=== PATIENT | male | born 1950 | race Caucasian/White ===

== ENCOUNTER 2017-10-03 10:01 | Observation (INO) ==
[2017-10-03 11:26] LABS: Baso # (Auto) 0.1 th/mm3 (0.0-0.2); Baso % (Auto) 0.8 % (0.0-2.0); Eos # (Auto) 0.3 th/mm3 (0.0-0.4); Eos % (Auto) 3.6 % (0.0-4.0); Hemoglobin 15.6 gm/dL (13.0-17.0); Lymph # (Auto) 1.7 th/mm3 (1.0-4.8); Lymph % (Auto) 21.8 % (9.0-44.0); Mean Corpuscular HGB Conc 33.8 % (32.0-36.0); Mean Corpuscular Hemoglobin 33.2 pg (27.0-34.0); Mean Corpuscular Volume 98.3 fL (80.0-100.0); Mean Platelet Volume 8.4 fL (7.0-11.0); Mono # (Auto) 0.5 th/mm3 (0.0-0.9); Mono % (Auto) 6.7 % (0.0-8.0); Neut # (Auto) 5.4 th/mm3 (1.8-7.7); Neut % (Auto) 67.1 % (16.0-70.0); Platelet Count 227 th/mm3 (150-450); Red Blood Count 4.68 mil/mm3 (4.50-5.90); Red Cell Distribution Width 12.4 % (11.6-17.2)
[2017-10-03 11:32] LABS: Chloride 108 meq/L (98-107); Potassium 3.8 meq/L (3.5-5.1); Sodium 140 meq/L (136-145)
[2017-10-03 11:34] LABS: Calcium 8.4 mg/dL (8.5-10.1)
[2017-10-03 11:35] LABS: Albumin 3.7 g/dL (3.4-5.0); Anion Gap 7 meq/L (5-15); Blood Urea Nitrogen 11 mg/dL (7-18); Carbon Dioxide 24.7 meq/L (21.0-32.0); Glucose,Random 97 mg/dL (74-106)
[2017-10-03 11:38] LABS: Alanine Aminotransferase 34 U/L (12-78); Aspartate Aminotransferase 23 U/L (15-37); Glomerular Filtration Rate 82 mL/min (>89)
--- NOTE | 2017-10-03 11:39 | ED ---
HPI General Chief Complaint: Anxiety Stated Complaint: Anxious/cold sweats x1week Time Seen by Provider: 10/03/17 10:59 Source: patient and family Mode of arrival: ambulatory Limitations: no limitations History of Present Illness MD complaint: anxiety Onset (ago): week(s) (2) Symptoms: dyspnea, palpitations, sense of impending doom and other (Diaphoresis , crying, feeling antsy and cannot be still) Severity: moderate Quality: intermittent and worsening (He states that his symptoms initially only occurred at night while he was sleeping. Over the last couple of days, his symptoms have become almost constant.) History of similar episodes: No Provoking factors: none known Relieving factors: other (Walking around outside) Exacerbating factors: nothing Associated symptoms: shortness of breath, diaphoresis and other (Crying, psychomotor agitation) Related Data Home Medications Medication Instructions Recorded Confirmed celecoxib [Celebrex] 200 mg PO BID 10/03/17 10/03/17 Allergies Allergy/AdvReac Type Severity Reaction Status Date / Time No Known Allergies Allergy Verified 10/03/17 10:09 Review of Systems Except as stated in HPI: all other systems reviewed are negative [facility] Medical History Medical History Diverticulitis large intestine (Acute) Patient denies medical problems (Acute) Surgical History Surgical History H/O spinal fusion (Acute) History of partial colectomy (Acute) Knee joint replacement status (Acute) Social History Social History Substance History: Active Abuse Second Hand Smoke Exposure: No Smoking Status: Former smoker How Often Do You Have a Drink Containing Alcohol: 2 to 3 times a week Recent Travel in [facility] within the Last 8 Weeks: No Recent Out of Country Travel within the Last 8 Weeks: No Substance Abuse Detail Marijuana: Substance Use Status: Active Route Used Substance Abuse: Inhalation Immunization History Tetanus Immunization: Unsure Hx Influenza Vaccine This Season: No Exam Const General: cooperative, healthy appearing, comfortable, no acute distress, well developed and well groomed HENKS Head: normal to inspection, normocephalic and atraumatic Eyes General: appearance normal, both eyes and all related structures Conjunctivae: conjunctivae normal Sclera: sclerae normal Pupils: PERRL EOM: EOM intact bilaterally Neck Neck: normal visual inspection and full ROM Chest Chest: normal inspection of the chest Resp Effort & Inspection: normal respiratory effort and able to speak in complete sentences Auscultation: clear to auscultation bilaterally Cardio Rate: regular rate Rhythm: regular rhythm Heart Sounds: S1 normal and S2 normal GI Inspection: normal to inspection Palpation: soft Back/Spine/Pelvis Cervical Spine: cervical ROM normal Thoracic/Lumbar Spine: thoraco-lumbar ROM normal Skin General: no rashes or lesions noted and turgor normal Lesions: other Neuro General: alert, awake, oriented x3, moves all extremities and CN's II-XI intact bilaterally Speech: speech normal Motor: muscle tone normal throughout Coordination: [id number] test normal Extrem General: normal to inspection and full ROM Psych Appearance: grossly normal Mental Status: mental status grossly normal Speech and Movement: speech and movement normal Mood: congruent mood Affect: labile affect Attitude: cooperative Thought Process: normal Thought Content: normal Judgment: judgment good Course Consultations Consultation #1: 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 [facility] for further evaluation Initial Documented Vital Signs Temperature 97.9 F 10/03/17 10:03 Pulse Rate 83 10/03/17 10:03 Respiratory Rate 18 10/03/17 10:03 Blood Pressure 154/89 H 10/03/17 10:03 Pulse Oximetry 95 10/03/17 10:03 Last Documented Vital Signs Temperature 97.9 F 10/03/17 10:03 Pulse Rate 82 10/03/17 14:32 Respiratory Rate 18 10/03/17 14:32 Blood Pressure 141/87 H 10/03/17 14:32 Pulse Oximetry 95 10/03/17 14:32 Medical Decision Making [facility] Narrative Medical decision making narrative: This patient presents with a two-week history of awakening in the middle the night with diaphoresis, shortness of breath, feeling his heartbeat in his throat and feeling very antsy. Symptoms will resolve with walking around outside. His symptoms have become acutely worse over the last couple of days. Symptoms are now almost continuous although they do wax and wane. He has no previous history of anxiety. On exam, he looks anxious. He becomes occasionally tearful. He is having psychomotor agitation. He needs to be evaluated for possible cardiopulmonary disease or hyperthyroidism. I am concerned that this patient is having anginal equivalents. He is agreeable to admission to the chest pain center for further evaluation. Differential Diagnosis Differential Diagnosis: My differential diagnosis anxiety includes but is not limited to generalized anxiety disorder, depression, psychoses, drug abuse, alcohol abuse Lab Data Lab results reviewed: Yes I reviewed the patient's lab results. Result diagrams: 10/03/17 10:45 10/03/17 10:45 Lab Results 10/03/17 10/03/17 10/03/17 Range/Units 10:45 10:45 10:45 CBC w Diff Auto diff final WBC 8.0 (4.0-11.0) th/mm3 RBC 4.68 (4.50-5.90) mil/mm3 Hgb 15.6 (13.0-17.0) gm/dL Hct 46.0 (39.0-51.0) % MCV 98.3 (80.0-100.0) fL MCH 33.2 (27.0-34.0) pg MCHC 33.8 (32.0-36.0) % RDW 12.4 (11.6-17.2) % Plt Count 227 (150-450) th/mm3 MPV 8.4 (7.0-11.0) fL Neut % (Auto) 67.1 (16.0-70.0) % Lymph % (Auto) 21.8 (9.0-44.0) % [place] % (Auto) 6.7 (0.0-8.0) % Eos % (Auto) 3.6 (0.0-4.0) % Baso % (Auto) 0.8 (0.0-2.0) % Neut # (Auto) 5.4 (1.8-7.7) th/mm3 Lymph # (Auto) 1.7 (1.0-4.8) th/mm3 [place] # (Auto) 0.5 (0.0-0.9) th/mm3 Eos # (Auto) 0.3 (0.0-0.4) th/mm3 Baso # (Auto) 0.1 (0.0-0.2) th/mm3 WBC Differential . Differential Comment . D-Dimer Quant (PE/DVT) 0.53 H (0.00-0.50) mg/L FEU Sodium 140 (136-145) meq/L Potassium 3.8 (3.5-5.1) meq/L Chloride 108 H (98-107) meq/L Carbon Dioxide 24.7 (21.0-32.0) meq/L Anion Gap 7 (5-15) meq/L BUN 11 (7-18) mg/dL Creatinine 0.93 (0.60-1.30) mg/dL Estimated GFR 82 L (>89) mL/min Random Glucose 97 (74-106) mg/dL Calcium 8.4 L (8.5-10.1) mg/dL Total Bilirubin 0.5 (0.2-1.0) mg/dL AST 23 (15-37) U/L ALT 34 (12-78) U/L Alkaline Phosphatase 95 (45-117) U/L Troponin I Less than 0.02 L (0.02-0.05) ng/mL Total Protein 7.5 (6.4-8.2) g/dL Albumin 3.7 (3.4-5.0) g/dL TSH 2.380 (0.358-3.740) uIU/mL Imaging Data Attestation: I personally reviewed and interpreted this imaging study as follows : Radiologist's impression: Chest X-Ray 10/03/17 11:07 CONCLUSION: Mild patchy opacity is now noted at the lung bases with no focal consolidation. This may represent atelectasis. Chest CTA 10/03/17 12:55 CONCLUSION: 1. No evidence of pulmonary emboli. 2. Underlying emphysema and bullous change. 3. Coronary artery calcifications are present. ECG Data EKG Prior to Arrival: No Attestation: I personally reviewed and interpreted this ECG as follows: (EKG shows a sinus rhythm with a rate of 76. There are no STT wave changes.) Discharge Plan Discharge Disposition Patient Disposition: 30 Still Patient Discharge Details Diagnosis: Dyspnea, Heart palpitations Physicians Team ED Provider: Ava Alaniz Primary Care Provider: Flavio Santacruz Rxs /Orders / Referrals /Forms Prescriptions: No Action celecoxib [Celebrex] 200 mg Capsule 200 mg PO BID RF: 0 Status ED Status: Pending Admission
[2017-10-03 11:40] LABS: Total Protein 7.5 g/dL (6.4-8.2)
[2017-10-03 11:41] LABS: Alkaline Phosphatase 95 U/L (45-117)
--- NOTE | 2017-10-03 11:42 | XR ---
EXAM DATE: 10/03/2017 11:38 AM EDT AGE/SEX: 67 years / Male INDICATIONS: Short of breath. CLINICAL DATA: This is the patient's initial encounter. Patient reports that signs and symptoms have been present for 1 week and indicates a pain score of 0/10. MEDICAL/SURGICAL HISTORY: None. None. COMPARISON: [facility] [place], CHEST PA & LAT, 11/02/2010. . FINDINGS: A single AP semierect, portable view of the chest demonstrates the lungs to be symmetrically aerated without evidence of spinal or effusion. Mild patchy opacity is now noted the lung bases with no focal consolidation. The cardiomediastinal contours are unremarkable. Osseous structures are intact. CONCLUSION: Mild patchy opacity is now noted at the lung bases with no focal consolidation. This may represent at electasis. Electronically signed by: Jamari Carrasco MD 10/03/2017 11:41 AM EDT
--- NOTE | 2017-10-03 15:03 | CT ---
EXAM DATE: 10/03/2017 2:56 PM EDT AGE/SEX: 67 years / Male INDICATIONS: Difficulty breathing. CLINICAL DATA: This is the patient's initial encounter. Patient reports that signs and symptoms have been present for 1 week and indicates a pain score of 0/10. MEDICAL/SURGICAL HISTORY: Diverticulitis. . Spinal fusion. Partial colectomy. RADIATION DOSE: 17.37 CTDI (mGy) COMPARISON: No prior exams available for comparison. TECHNIQUE: Volumetric scanning was performed using a multi-row detector CT scanner during bolus infu shirin of 75 ml Omnipaque 350 (iohexol) nonionic water-soluble contrast as a single exam dose. The wilbert a was post processed with a variety of visualization algorithms including full volume maximum intensi ty projection and sliding thin slab reformation. Using automated exposure control and adjustment of t he mA and/or kV according to patient size, radiation dose was kept as low as reasonably achievable to obtain optimal diagnostic quality images. DICOM format image data is available electronically for r eview and comparison. FINDINGS: Pulmonary Arteries: No filling defects are seen in the pulmonary arteries out to the subsegmental ve ssels. The left and right pulmonary arteries are normal in diameter. Lung: Underlying emphysema and bullous change are present. There is no focal consolidation. Effusion: None. Mediastinum: No evidence of mediastinal or hilar adenopathy. Coronary artery calcifications are pres ent. Other: The axilla is unremarkable. CONCLUSION: 1. No evidence of pulmonary emboli. 2. Underlying emphysema and bullous change. 3. Coronary artery calcifications are present. Electronically signed by: Jamari Carrasco MD 10/03/2017 3:02 PM EDT
[2017-10-03] MEDS ORDERED: Morphine Inj 4 MG/ML Vial IV.PUSH PRN (15:40)
[2017-10-03] MEDS ORDERED: Acetaminophen 500 MG Tablet PO PRN (15:40)
[2017-10-03] MEDS ORDERED: Temazepam 15 MG Capsule PO PRN (15:40)
--- NOTE | 2017-10-03 16:18 | P.HP ---
History of Present Illness Primary Care Physician: Flavio Santacruz MD Chief Complaint: Chest discomfort, waking up unable to breathe History of Present Illness: 67-year-old male with known history of arthritis, history of hyperlipidemia who presented the hospital because of 1 week history of multiple symptoms. Patient states that lately he has been waking up suddenly unable to breathe but able to catch his breath. He did not think much of it until this morning when he had the same thing happened to him and he felt a discomfort up in the top part of his chest and into his neck with associated nausea, diaphoresis. Patient states that he cannot quantify the pain. But it lasted for a few minutes. After that he just felt very anxious. Her friend did come over he had a half a cup of coffee but he just could not settle down so he came to emergency department for evaluation. Patient did have workup done emergency department and essentially unremarkable evaluation. Patient did have a pulmonary angiogram performed which did show coronary calcifications. Given the patient having the symptoms that are described as paroxysmal nocturnal dyspnea, chest pain, coronary calcifications ER physician recommended the patient be observed in the hospital for possible stress test. Patient denies any previous cardiac workup or any previous stress test. - Diagnosis (1) Chest pain (2) Paroxysmal nocturnal dyspnea Review of Systems All other systems reviewed negative except as stated in HPI Constitutional: Reports excessive sweating Cardiovascular: Reports chest pain, Reports chest pain at rest, Reports shortness of breath, Reports other (Paroxysmal nocturnal dyspnea) PMF - History History Provided By: Patient - Medical History Medical History: Medical History (Last Updated 10/03/17 @ 16:14 by RONEL Azul) Chronic back pain Chronic knee pain Diverticulitis large intestine History of hyperlipidemia - Surgical History Surgical History: Surgical History (Last Updated 10/03/17 @ 11:33 by Ava Alaniz) H/O spinal fusion History of partial colectomy Knee joint replacement status - Family History Family History: Family History (Last Updated 10/03/17 @ 16:15 by RONEL Azul) Mother History of diabetes mellitus Father History of prostate cancer - Tobacco History Second Hand Smoke Exposure: No Smoking Status: Former smoker - Alcohol History How Often Do You Have a Drink Containing Alcohol: 2 to 3 times a week - Substance Use History Substance History: Active Abuse - Substance Use Type Marijuana Status: Active Route Used: Inhalation - Travel History Recent Travel in the [place] Within the Last 8 Weeks: No Recent Travel Out of the Country Within the Last 8 Weeks: No - Immunization History Tetanus Immunization: Unsure Hx Influenza Vaccine This Season: No Medications and Allergies Active Medications: Active Medications Acetaminophen (Tylenol) 500 mg PO Q4H PRN PRN Reason: HEADACHE Hydrocodone Bitart/Acetaminophen ([place] 7.5/325) 1 tab PO Q4H PRN PRN Reason: PAIN SCALE 1 TO 7 Aspirin (Aspirin) 325 mg PO DAILY ALLISON Morphine Sulfate (Morphine Inj) 2 mg IV.PUSH Q4H PRN PRN Reason: PAIN SCALE 8 TO 10 Nitroglycerin (Nitrostat Sl) 0.4 mg SL Q5M PRN PRN Reason: CHEST PAIN Ondansetron HCl (Zofran Inj) 4 mg IV.PUSH Q6H PRN PRN Reason: NAUSEA Sodium Chloride (Ns Flush) 2 ml IV.FLUSH PRN PRN PRN Reason: FLUSH AFTER USING IV ACCESS Sodium Chloride (Ns Flush) 2 ml IV.FLUSH BID ALLISON Temazepam (Restoril) 15 mg PO HS PRN PRN Reason: INSOMNIA Allergies Allergy/AdvReac Type Severity Reaction Status Date / Time No Known Allergies Allergy Verified 10/03/17 10:09 Home Medications Medication Instructions Recorded Confirmed Type celecoxib [Celebrex] 200 mg PO BID 10/03/17 10/03/17 History Exam Vital signs: Vital Signs 10/03/17 10:03 10/03/17 11:03 10/03/17 11:19 Temperature 97.9 F Pulse Rate 83 77 Respiratory Rate 18 18 Blood Pressure 154/89 H 151/91 H Pulse Oximetry 95 95 97 10/03/17 13:23 10/03/17 14:32 Temperature Pulse Rate 75 82 Respiratory Rate 18 18 Blood Pressure 141/92 H 141/87 H Pulse Oximetry 94 L 95 Intake & Output 10/02/17 10/03/17 10/03/17 18:59 06:59 18:59 Weight 91.3 kg Narrative: GENERAL: Well-developed, well-nourished, in no acute distress. alert and orientated HEENT: Head is normocephalic without any lesions or masses noted. Facial features are symmetric. Eyes: Pupils equal round reactive to light. Extraocular muscles are intact. Conjunctivae were clear. Oropharyngeal: Pharynx without any erythema edema. Tongue is midline without deviation. Buccal mucosa is moist without any masses or lesions NECK: Supple without any masses. Trachea midline no deviation. No JVD, no bruits are appreciated CARDIAC: Regular rhythm, regular rate. S1/S2 are heard. No murmurs gallops or rubs. LUNGS: Clear to auscultation bilaterally. No wheeze, rhonchi or rales. No use of accessory muscles on inspiration or expiration. ABDOMEN: Soft, nontender. Nondistended. Bowel sounds heard in all 4 quadrants. No organomegaly or masses. Negative rebound, negative guarding. Incisional hernia noted but easily reducible EXTREMITIES: No edema, pulses are equal bilaterally. No cyanosis or clubbing NEUROLOGY: Mood and affect appear appropriate. Cranial nerves II through XII grossly intact. Muscle strength 5/5 in upper and lower extremities bilaterally. Deep tendon reflexes are 2+ in upper and lower extremities bilaterally. Results - Labs CBC & Chem 7: 10/03/17 10:45 10/03/17 10:45 Labs: Laboratory Results - last 24 hr 10/03/17 10/03/17 10/03/17 10:45 10:45 10:45 CBC w Diff Auto diff final WBC 8.0 RBC 4.68 Hgb 15.6 Hct 46.0 MCV 98.3 MCH 33.2 MCHC 33.8 RDW 12.4 Plt Count 227 MPV 8.4 Neut % (Auto) 67.1 Lymph % (Auto) 21.8 [place] % (Auto) 6.7 Eos % (Auto) 3.6 Baso % (Auto) 0.8 Neut # (Auto) 5.4 Lymph # (Auto) 1.7 [place] # (Auto) 0.5 Eos # (Auto) 0.3 Baso # (Auto) 0.1 WBC Differential . Differential Comment . D-Dimer Quant (PE/DVT) 0.53 H Sodium 140 Potassium 3.8 Chloride 108 H Carbon Dioxide 24.7 Anion Gap 7 BUN 11 Creatinine 0.93 Estimated GFR 82 L Random Glucose 97 Calcium 8.4 L Total Bilirubin 0.5 AST 23 ALT 34 Alkaline Phosphatase 95 Troponin I Less than 0.02 L Total Protein 7.5 Albumin 3.7 TSH 2.380 - Imaging Impressions Chest X-Ray 10/03/17 11:07 CONCLUSION: Mild patchy opacity is now noted at the lung bases with no focal consolidation. This may represent atelectasis. Chest CTA 10/03/17 12:55 CONCLUSION: 1. No evidence of pulmonary emboli. 2. Underlying emphysema and bullous change. 3. Coronary artery calcifications are present. Caprini VTE Risk Assessment Caprini VTE Risk Assessment: No/Low Risk (score <= 1) Caprini Risk Assessment Model: Point Value = 1 Point Value = 2 Point Value = 3 Point Value = 5 Age 41-60 Minor surgery BMI > 25 kg/m2 Swollen legs Varicose veins or History of unexplained or recurrent spontaneous Oral contraceptives or hormone replacement Sepsis (< 1 month) Serious lung disease, including pneumonia (< 1 month) Abnormal pulmonary function Acute myocardial infarction Congestive heart failure (< 1 month) History of inflammatory bowel disease Medical patient at bed rest Age 61-74 Arthroscopic surgery Major open surgery (> 45 min) Laparoscopic surgery (> 45 min) Malignancy Confined to bed (> 72 hours) Immobilizing plaster cast Central venous access Age >= 75 History of VTE Family history of VTE Factor V Leiden Prothrombin [id number] Lupus anticoagulant Anticardiolipin antibodies Elevated serum homocysteine Heparin-induced thrombocytopenia Other congenital or acquired thrombophilia Stroke (< 1 month) Elective arthroplasty Hip, pelvis, or leg fracture Acute spinal cord injury (< 1 month) Prophylaxis Regimen: Total Risk Factor Score Risk Level Prophylaxis Regimen 0-1 Low Early ambulation 2 Moderate Order ONE of the following: *Sequential Compression Device (SCD) *Heparin 5000 units SQ BID 3-4 Higher Order ONE of the following medications: *Heparin 5000 units SQ TID *Enoxaparin/Lovenox 40 mg SQ daily (WT < 150 kg, CrCl > 30 mL/min) *Enoxaparin/Lovenox 30 mg SQ daily (WT < 150 kg, CrCl > 10-29 mL/min) *Enoxaparin/Lovenox 30 mg SQ BID (WT < 150 kg, CrCl > 30 mL/min) AND/OR *Sequential Compression Device (SCD) 5 or more Highest Order ONE of the following medications: *Heparin 5000 units SQ TID (Preferred with Epidurals) *Enoxaparin/Lovenox 40 mg SQ daily (WT < 150 kg, CrCl > 30 mL/min) *Enoxaparin/Lovenox 30 mg SQ daily (WT < 150 kg, CrCl > 10-29 mL/min) *Enoxaparin/Lovenox 30 mg SQ BID (WT < 150 kg, CrCl > 30 mL/min) AND *Sequential Compression Device (SCD) Assessment and Plan - Assessment (1) Chest pain Code(s): R07.9 - Chest pain, unspecified Status: Acute (2) Paroxysmal nocturnal dyspnea Code(s): R06.00 - Dyspnea, unspecified Status: Acute - Plan Chest pain -Patient with increased risk factors include age, history of hyperlipidemia, male, tobacco use -Patient with presenting symptoms of paroxysmal nocturnal dyspnea, unstable angina, chest pain, diaphoresis -Pulmonary angiogram did not indicate any pulmonary emboli, however does show significant coronary calcifications -We will continue ruled patient out for acute coronary event with serial cardiac enzymes, thus far they have remained negative -Serial EKGs showed normal sinus rhythm, I have reviewed EKGs dating back to 2010 and there have been no changes -We will perform myocardial perfusion study to rule out any underlying ischemia -Continue aspirin, nitroglycerin as needed, [place], morphine for pain control -Continue monitor telemetry History of hyperlipidemia -Obtain fasting lipid panel DVT prevention -Sequential compression devices
[2017-10-03 17:04] LABS: Creatine Kinase 128 U/L (39-308)
--- NOTE | 2017-10-03 18:03 | ECG ---
Date Performed: 10/03/2017 Time Performed: 16:03:59 PTAGE: 67 years EKG: Sinus rhythm NORMAL ECG PREVIOUS TRACING : 10/03/2017 11.47 Since the previous tracing, no significant change noted DOCTOR: Terry Robertson Interpretating Date/Time 10/03/2017 18:01:49
--- NOTE | 2017-10-03 18:10 | ECG ---
Date Performed: 10/03/2017 Time Performed: 11:47:07 PTAGE: 67 years EKG: Sinus rhythm NORMAL ECG PREVIOUS TRACING : 11/02/2010 11.27 Since the previous tracing, no significant change noted DOCTOR: Terry Robertson Interpretating Date/Time 10/03/2017 18:08:33
[2017-10-03 19:21] LABS: Creatine Kinase 119 U/L (39-308)
--- NOTE | 2017-10-04 08:23 | P.PN ---
Subjective Interval history: 67-year-old male who is seen in follow-up for chest pain, paroxysmal nocturnal dyspnea, anxiety. Patient states he did have one episode last night of his shortness of breath. Velocity in the patient's morning and discussing treatment plan. He started getting very anxious and get out of bed. Vital signs remained stable, patient afebrile Physical Exam Vital signs: Vital Signs 10/03/17 10:03 10/03/17 11:03 10/03/17 11:19 Temperature 97.9 F Pulse Rate 83 77 Respiratory Rate 18 18 Blood Pressure 154/89 H 151/91 H Pulse Oximetry 95 95 97 10/03/17 13:23 10/03/17 14:32 10/03/17 16:00 Temperature 96.9 F L Pulse Rate 75 82 76 Respiratory Rate 18 18 16 Blood Pressure 141/92 H 141/87 H 155/84 H Pulse Oximetry 94 L 95 95 10/03/17 16:49 10/03/17 17:54 10/03/17 17:56 Temperature Pulse Rate 79 Respiratory Rate 18 Blood Pressure 112/62 Pulse Oximetry 95 95 95 10/03/17 20:00 10/03/17 22:42 10/04/17 00:00 Temperature 96.8 F L 96.4 F L Pulse Rate 74 90 78 Respiratory Rate 20 20 Blood Pressure 129/73 122/72 Pulse Oximetry 94 L 93 L 10/04/17 04:00 Temperature 96.9 F L Pulse Rate 71 Respiratory Rate 20 Blood Pressure 158/83 H Pulse Oximetry 94 L Intake & Output 10/03/17 10/04/17 10/04/17 18:59 06:59 18:59 Intake Total 120 / 120 Balance 120 / 120 Weight 91.3 kg 91.1 kg Intake: Oral 120 / 120 Other: # Voids 1 Date of Last Bowel Movement 10/03/17 # Bowel Movements 1 Narrative: GENERAL: Well-developed, well-nourished, in no acute distress. alert and orientated HEENT: Head is normocephalic without any lesions or masses noted. Facial features are symmetric. Eyes: Extraocular muscles are intact. Conjunctivae were clear. NECK: Supple without any masses. Trachea midline no deviation. No JVD, CARDIAC: Regular rhythm, regular rate. S1/S2 are heard. No murmurs gallops or rubs. LUNGS: Clear to auscultation bilaterally. No wheeze, rhonchi or rales. No use of accessory muscles on inspiration or expiration. ABDOMEN: Soft, nontender. Nondistended. Bowel sounds heard in all 4 quadrants. No organomegaly or masses. Negative rebound, negative guarding EXTREMITIES: No edema, pulses are equal bilaterally. No cyanosis or clubbing NEUROLOGY: Mood and affect appear appropriate. Cranial nerves II through XII grossly intact. Moving all extremities, speech is clear Results - Labs CBC & Chem 7: 10/03/17 10:45 10/03/17 10:45 Laboratory Results - last 24 hr 10/03/17 10/03/17 10/03/17 10:45 10:45 10:45 CBC w Diff Auto diff final WBC 8.0 RBC 4.68 Hgb 15.6 Hct 46.0 MCV 98.3 MCH 33.2 MCHC 33.8 RDW 12.4 Plt Count 227 MPV 8.4 Neut % (Auto) 67.1 Lymph % (Auto) 21.8 [place] % (Auto) 6.7 Eos % (Auto) 3.6 Baso % (Auto) 0.8 Neut # (Auto) 5.4 Lymph # (Auto) 1.7 [place] # (Auto) 0.5 Eos # (Auto) 0.3 Baso # (Auto) 0.1 WBC Differential . Differential Comment . D-Dimer Quant (PE/DVT) 0.53 H Sodium 140 Potassium 3.8 Chloride 108 H Carbon Dioxide 24.7 Anion Gap 7 BUN 11 Creatinine 0.93 Estimated GFR 82 L Random Glucose 97 Calcium 8.4 L Total Bilirubin 0.5 AST 23 ALT 34 Alkaline Phosphatase 95 Total Creatine Kinase Troponin I Less than 0.02 L Total Protein 7.5 Albumin 3.7 TSH 2.380 10/03/17 10/03/17 16:40 19:00 CBC w Diff WBC RBC Hgb Hct MCV MCH MCHC RDW Plt Count MPV Neut % (Auto) Lymph % (Auto) [place] % (Auto) Eos % (Auto) Baso % (Auto) Neut # (Auto) Lymph # (Auto) [place] # (Auto) Eos # (Auto) Baso # (Auto) WBC Differential Differential Comment D-Dimer Quant (PE/DVT) Sodium Potassium Chloride Carbon Dioxide Anion Gap BUN Creatinine Estimated GFR Random Glucose Calcium Total Bilirubin AST ALT Alkaline Phosphatase Total Creatine Kinase 128 119 Troponin I Less than 0.02 L Less than 0.02 L Total Protein Albumin TSH - Imaging Impressions Chest X-Ray 10/03/17 11:07 CONCLUSION: Mild patchy opacity is now noted at the lung bases with no focal consolidation. This may represent atelectasis. Chest CTA 10/03/17 12:55 CONCLUSION: 1. No evidence of pulmonary emboli. 2. Underlying emphysema and bullous change. 3. Coronary artery calcifications are present. Assessment and Plan - Assessment (1) Chest pain Code(s): R07.9 - Chest pain, unspecified Status: Acute (2) Paroxysmal nocturnal dyspnea Code(s): R06.00 - Dyspnea, unspecified Status: Acute - Plan Chest pain -Patient with increased risk factors include age, history of hyperlipidemia, male, tobacco use -Patient with presenting symptoms of paroxysmal nocturnal dyspnea, unstable angina, chest pain, diaphoresis -Pulmonary angiogram did not indicate any pulmonary emboli, however does show significant coronary calcifications -Patient has been ruled out for acute coronary event with serial cardiac enzymes remain negative -Serial EKGs were reviewed by myself and still continues show normal sinus rhythm without any changes -Myocardial perfusion study was performed and did not show any signs of ischemia , low risk -Continue aspirin, nitroglycerin as needed, Lynch, morphine for pain control -Continue monitor telemetry -Patient symptoms could be related to anxiety, patient was notified to follow- up with his primary medical l doctor for further evaluation and management. Patient responded well to Ativan, I discussed with him that he needed to follow- up with his primary medical doctor in order to be evaluated for antianxiety treatment. Patient started getting belligerent about when he can follow-up with his primary medical doctor and if he follows up with that physician will he have all the information available to him so there is no complication. I notified him that the primary medical doctor will requests the medical records be sent to them prior to the appointment. Upon further discussion with the patient he started getting very loud and agitated. He was actually using a lot of body language with his arms and hands when he was talking and they were flying around and actually hitting the side of the bed quite forcefully. He told his to "shut up" a couple of times. His also started getting very agitated and raising her voice at her and became argumentative also. He is concerned that once he leaves the hospital that he may have worsening anxiety fits that he will be able to control and he wanted to know where he was to go if that was to happen. He asked if he should just come right back to the ER again if that was to happen. I agreed that he could come back to the emergency department, however if he feels that he has a psychiatric condition is bad enough that maybe he should go to [facility] for further evaluation and management. Presently the patient is not suicidal and does not meet psychiatric admission at this time. History of hyperlipidemia -Lipid panel indicate significant triglyceridemia, unable to calculate LDL -Patient indicates that he was taken off of statin in the past due to adverse complications. -I discussed with the patient that he needs follow-up with a prior medical doctor to evaluate what medications he can be treated with and have appropriate follow-up DVT prevention -Sequential compression devices Discharge Planning: Discharge home in stable condition Activity: Ad noman. Diet: Healthy heart diet Medication per medication reconciliation Follow-up with primary medical doctor in 1 week
[2017-10-04] MEDS ORDERED: Aspirin 325 MG Tablet PO SCH (09:00)
[2017-10-04] MEDS ORDERED: Regadenoson Inj 0.4 MG/5 ML Syringe IV.PUSH ONE (10:34)
[2017-10-04 10:58] LABS: Chol/HDL Ratio 7.15 Ratio; HDL Cholesterol 27.8 mg/dL (40.0-60.0)
--- NOTE | 2017-10-04 12:34 | NM ---
EXAM DATE: 10/04/2017 12:25 PM EDT AGE/SEX: 67 years / Male INDICATIONS:Angina. . Chest pain. CLINICAL DATA: This is the patient's initial encounter. Patient reports that signs and symptoms have been present for 1 day and indicates a pain score of 2/10. MEDICAL/SURGICAL HISTORY: Hypercholesterolemia. Fusion, lumbar. COMPARISON: No prior exams available for comparison. DOSE: 26.8 mCi Tc 99m Myoview at stress 8.8 mCi [id number] at rest 0.4 mg Lexiscan STRESS SYMPTOMS: Neck pressure and dizziness. EJECTION FRACTION: 55 % TECHNIQUE: The patient underwent pharmacologic stress with infusion of prescribed dose. Continuous ECG tracing was monitored during stress. Gated SPECT imaging was performed after stress and conventi onal SPECT imaging was performed at rest. The examination was performed on a SPECT/CT scanner, both attenuation and non-corrected datasets were reviewed. FINDINGS: Distribution: The maximum perfused segment at stress is in the lateral wall. Perfusion Study: The pattern of perfusion at stress is within normal limits. Gated Study: There are intact wall motion and wall thickening without hypokinetic or dyskinetic segm ents. The ejection fraction is calculated at 55%. RISK CATEGORY: Low (<1% Annual Motality Rate) CONCLUSION: 1. Unremarkable myocardial perfusion examination. Electronically signed by: Fawad Thomas MD 10/04/2017 12:32 PM EDT
--- NOTE | 2017-10-04 15:59 | TR ---
Date Performed: 10/04/2017 Time Performed: 11:14:15 DOCTOR: Jama Bernard DRUG LIST: CLINICAL HISTORY: REASON FOR TEST: Chest pain REASON FOR ENDING: OBSERVATION: CONCLUSION: COMMENTS: Lexiscan stress test was performed under standard four minute protocol. Radionuclide was injected one minute prior to ending the test. No electrocardiographic abormalities were present t o suggest ischemia. Nuclear imaging and interpretation are pending.
--- NOTE | 2017-10-04 16:33 | ECG ---
Date Performed: 10/03/2017 Time Performed: 18:50:48 PTAGE: 67 years EKG: Sinus rhythm NORMAL ECG PREVIOUS TRACING : 10/03/2017 16.03 Since previous tracing, no significant change noted DOCTOR: Jama Bernard Interpretating Date/Time 10/04/2017 16:31:54
== END 2017-10-04 13:50 | disposition home or self-care (01) ==
LOC: PHED 10:01 → PH3 10:01 → PHEDA 10:01 → PH3 17:00
PROVIDERS: ADMIT Family Medicine; ATTEND Family Medicine

== ENCOUNTER 2017-12-06 11:00 | Inpatient (IN) ==
[2017-12-06] MEDS ORDERED: Chlorhexidine Gluconate 2% 1 Pack (2 Cloths) TOPICAL ONE (11:30)
[2017-12-06] MEDS ORDERED: Metoprolol Tartrate 25 MG Tablet PO ONE (11:30)
[2017-12-06] MEDS: Sodium Chlor 0.9% Inj 500 ML IV.CONT ONE ×2 (11:30→20:00)
[2017-12-06] MEDS ORDERED: Sodium Chloride 0.9% 2 ML Flush PRN IV.FLUSH (11:31)
[2017-12-06] MEDS ORDERED: Vancomycin Inj 1,000 MG in Sodium Chlor 0.9% Inj 250 ML IV.SIG ONE (12:00)
[2017-12-06] MEDS ORDERED: Bupivacaine Liposomal PF 1.3% Inj 20 ML Vial ONE (13:17)
[2017-12-06] MEDS ORDERED: Bupivacaine/Epinephrine Inj 0.25% 50 ML Vial ONE (14:40)
[2017-12-06] MEDS ORDERED: Ketorolac Inj 30 MG/ML (IVP) Vial IV.PUSH ONE (15:00)
[2017-12-06] MEDS ORDERED: Lidocaine PF 1% Inj 5 ML Syringe OTHER ONE (15:00)
[2017-12-06] MEDS ORDERED: *Meperidine Inj 25 MG/ML Vial PERIprocedural Use ONLY ONE (17:48)
[2017-12-06] MEDS ORDERED: fentaNYL Citrate Inj 100 MCG/2 ML Ampul ONE ×2 (17:54→17:55)
--- NOTE | 2017-12-06 18:06 | P.OP ---
- Preoperative Diagnosis (1) Incisional hernia of anterior abdominal wall without obstruction or gangrene - Postoperative Diagnosis (1) Incisional hernia of anterior abdominal wall without obstruction or gangrene Date of procedure: 12/19/17 Procedure: 1. Laparoscopic lysis of adhesions 2. Laparoscopic incisional hernia repair with Touchet-Chris DualMesh Anesthesia: KEREN Surgeon: Jamari Castellano MD Captain Room Service: Delta Whitehead CFA Estimated blood loss (mL): 20 IV fluids (mL): 1,700 Pathology: none sent Operation and Findings: The patient was taken to the operating room and placed on the operating table in the supine position. After an adequate level of general endotracheal anesthesia was achieved, tap block was performed by anesthesia on the abdomen. The abdomen was then shaved, prepped and draped. Time-out was taken, confirming the correct patient, site, and procedure to be performed. Incision was made in the left upper quadrant and the fascia with a hemostat. The peritoneal cavity could not be easily visualized and further efforts at utilizing this position were abandoned. A 5 mm trocar was then brought in in the right upper quadrant. This entered the abdominal cavity under direct vision uneventfully. The patient was noted to have adhesions in the left upper quadrant where the attempt was made to place the balloon trocar. At this point a second 5 mm trocar was placed in the upper mid abdomen and entered the abdominal cavity under direct vision uneventfully as well. Adhesions were taken down off of the left upper quadrant anterior abdominal wall sharply and the balloon trocar could then be inserted. Irrigation was used over the area of bowel that had been taken down with both blunt dissection and sharp dissection. The bowel appeared intact. There was no bleeding and on no evidence of injury to the intestine. Following this, small bowel was seen to be plastered to the anterior abdominal wall in the mid portion of the abdominal incision. The hernia defect was noted and was measured. The the entire defect was 7 x 7 cm in diameter. A 15 x 19 cm Touchet-Chris DualMesh was selected for the defect. While materials were being obtained, the small bowel was taken down from the anterior abdominal wall with sharp dissection. No bleeding was noted at the completion of the procedure. The selected mesh was then rolled up after placing 0 Touchet sutures at 4 points and placed into the abdominal cavity. The mesh was unfurled and tacked at 4 points to the anterior abdominal wall utilizing the suture passer and the Touchet sutures. The Capsure tacker was then used to tack the mesh up to the anterior abdominal wall. When this was completed, for additional 0 Touchet sutures were used to secure the mesh between the previous 4 sutures. These trans-fascial stitches were used to further buttress the mesh. It should be noted that a third 5 mm trocar was used in the right lower quadrant on the patient in order to obtain better visualization and to place the tacks. When this was completed , insufflation was discontinued and the trocars were removed under direct vision. No bleeding was noted from the trocar sites. The laparoscope and left upper quadrant port were removed. The fascia was closed at this point with [id number] 0 Vicryl suture in 2 layers. The skin was closed at all of the trocar sites with 4-0 Vicryl suture in an interrupted buried fashion. All sites including all of the trans-fascial suture sites were dressed with Steri- Strips. An abdominal binder was applied and the patient was then extubated and taken back to the recovery room in stable condition. Sponge and needle counts were reported to be correct. The patient tolerated the procedure well.
[2017-12-06] MEDS ORDERED: Promethazine 25 MG Supp RECTAL PRN (18:07)
[2017-12-06] MEDS ORDERED: Post-op Orders (for Pharmacy) OTHER ONE (18:07)
[2017-12-06] MEDS ORDERED: Ketorolac Inj 30 MG/ML (IVP) Vial IV.PUSH PRN (18:07)
[2017-12-06] MEDS ORDERED: Bisacodyl 10 MG Supp RECTAL PRN (18:07)
[2017-12-06] MEDS ORDERED: Naloxone Inj 0.4 MG/ML Vial IV.PUSH PRN (18:12)
[2017-12-06] MEDS ORDERED: Morphine Inj 30 MG/30 ML PCA.VIAL PCA PRN (18:12)
[2017-12-06] MEDS ORDERED: KCL 20 mEq/D5W/NaCl 0.9% Inj 1,000 ML ONE (18:20)
[2017-12-06] MEDS ORDERED: Morphine Inj 30 MG/30 ML PCA.VIAL PCA ONE (18:20)
[2017-12-06] MEDS: KCL 20 mEq/D5W/NaCl 0.9% Inj 1,000 ML IV.CONT SCH (18:37)
[2017-12-06] MEDS: Sodium Chloride 0.9% 2 ML Flush BID IV.FLUSH SCH (21:06)
[2017-12-06] MEDS: Senna/Docusate Sodium 8.6/50 MG Tablet PO SCH (21:06)
[2017-12-07] MEDS: PCA - Total MG Morphine Delevered per Shift MISCELLANE SCH ×4 (00:20→21:52)
[2017-12-07] MEDS: KCL 20 mEq/D5W/NaCl 0.9% Inj 1,000 ML IV.CONT SCH ×2 (07:56→21:44)
[2017-12-07] MEDS: Senna/Docusate Sodium 8.6/50 MG Tablet PO SCH ×2 (08:10→21:47)
[2017-12-07] MEDS: Sodium Chloride 0.9% 2 ML Flush BID IV.FLUSH SCH ×2 (08:10→21:44)
--- NOTE | 2017-12-07 09:50 | P.PNGS ---
Subjective Interval history: Resting in bed Does not really like clear liquids Passes a small amount of gas Wants to walk Physical Exam Vital signs: Vital Signs 12/06/17 11:47 12/06/17 17:50 12/06/17 19:30 Temperature 98.0 F 97.8 F 98.1 F Pulse Rate 74 99 H 74 Respiratory Rate 20 17 14 Blood Pressure 134/77 178/84 H 135/64 Pulse Oximetry 95 94 L 93 L 12/06/17 20:00 12/07/17 08:00 Temperature 98.3 F 99.1 F Pulse Rate 74 78 Respiratory Rate 16 19 Blood Pressure 114/62 104/55 L Pulse Oximetry 96 94 L Intake & Output 12/06/17 12/07/17 12/07/17 18:59 06:59 18:59 Intake Total 2049 / 2049 100 / 100 400 / 400 Output Total Balance 2029 100 / 100 400 / 400 Weight 89.7 kg Intake: IV 350 / 350 100 / 100 400 / 400 D5W/NS + KCL 20 mEq Inj 1,000 400 / 400 ML @ 75 mls/hr IV.CONT .[id number] [facility] Rx#:[id number] Ofirmev Inj 1,000 mg In 100 ml 100 / 100 @ 400 mls/hr IV.SIG EXTRACTION SUPERVISOR ONE Rx#:[id number] Vancomycin Inj 1,000 MG In NS 250 / 250 Inj 250 ML @ 250 mls/hr IV.SIG EXTRACTION SUPERVISOR ONE Rx#:[id number] Ancef Inj 1,000 MG In NS Inj 100 / 100 100 ML @ 200 mls/hr IV.SIG EXTRACTION SUPERVISOR ONE Rx#:[id number] Anesthesia Amount 1700 / 1700 Output: Estimated Blood Loss 20 / 20 Other: Weight On Admission 89.7 kg Narrative: Alert and awake Abd: binder in place; lap sites c/d/i; soft; minimally tender No edema Assessment and Plan - Assessment (1) Incisional hernia of anterior abdominal wall without obstruction or gangrene Code(s): K43.2 - Incisional hernia without obstruction or gangrene Status: Acute Plan: 67 year old male POD1 lap hernia repair and BRYSON -Advance to full liquids for lunch -IVF -Pain control -OOB and mobilize -Will advance diet as bowel function returns -Anticipate DC in the next 24-48 hours Doing well; not quite ready for discharge yet; need to monitor closely for signs /sxs bowel injury The exam, history, and the medical decision-making described in the above note were completed with the assistance of the mid-level provider. I reviewed and agree with the findings presented. I attest that I had a [id number] encounter with the patient on the same day, and personally performed and documented my assessment and findings in the medical record.
[2017-12-07] MEDS: Enoxaparin Inj 40 MG/0.4 ML Syringe SQ SCH (16:27)
[2017-12-08] MEDS: PCA - Total MG Morphine Delevered per Shift MISCELLANE SCH ×3 (06:46→21:40)
[2017-12-08] MEDS: Senna/Docusate Sodium 8.6/50 MG Tablet PO SCH ×2 (09:57→21:40)
[2017-12-08] MEDS: Sodium Chloride 0.9% 2 ML Flush BID IV.FLUSH SCH ×2 (10:06→21:40)
--- NOTE | 2017-12-08 11:48 | P.PNGS ---
Subjective Interval history: Resting in bed at bedside Walked in the hallways yesterday Physical Exam Vital signs: Vital Signs 12/07/17 11:56 12/07/17 15:49 12/07/17 20:00 Temperature 97.9 F 99.0 F 99.3 F Pulse Rate 71 67 76 Respiratory Rate 19 19 18 Blood Pressure 148/67 H 117/61 130/71 Pulse Oximetry 96 94 L 92 L 12/08/17 00:00 12/08/17 04:00 12/08/17 08:00 Temperature 99.6 F 97.8 F 98.2 F Pulse Rate 74 76 66 Respiratory Rate 18 18 14 Blood Pressure 162/68 H 149/74 H Pulse Oximetry 92 L 93 L 94 L Intake & Output 12/07/17 12/08/17 12/08/17 18:59 06:59 18:59 Intake Total 1959 Balance 1959 Weight 94.1 kg Intake: IV 1000 / 1000 D5W/NS + KCL 20 mEq Inj 1,000 1000 / 1000 ML @ 75 mls/hr IV.CONT .[id number] [facility] Rx#:[id number] Oral 960 / 960 Other: # Voids 3 2 Narrative: Alert and awake Abd: binder inp place; lap sites c/d/i; soft; minimally tender to palpation - Routine Abdominal Exam Present: soft, tenderness (minima), surgical scars (steri-strips dry; abdominal binder in place) Assessment and Plan - Assessment (1) Incisional hernia of anterior abdominal wall without obstruction or gangrene Code(s): K43.2 - Incisional hernia without obstruction or gangrene Status: Acute Plan: 67 year old male POD1 lap hernia repair and BRYSON -Advance to regular diet for lunch -KVO IVF -Pain control ---wean MIXER OPERATOR TABLETS as PO pain pills started -OOB and mobilize -Anticipate DC tomorrow -RX on chart As above; weaning IV MIXER OPERATOR TABLETS so he will be able to be discharged in AM The exam, history, and the medical decision-making described in the above note were completed with the assistance of the mid-level provider. I reviewed and agree with the findings presented. I attest that I had a [id number] encounter with the patient on the same day, and personally performed and documented my assessment and findings in the medical record.
[2017-12-08] MEDS: KCL 20 mEq/D5W/NaCl 0.9% Inj 1,000 ML IV.CONT SCH (14:31)
[2017-12-08] MEDS: Enoxaparin Inj 40 MG/0.4 ML Syringe SQ SCH (16:08)
[2017-12-09] MEDS: PCA - Total MG Morphine Delevered per Shift MISCELLANE SCH (06:34)
[2017-12-09 09:42] VITALS: BP 142/73; PULSE 79; RESP 19; TEMP 94.1; O2SAT 93
--- NOTE | 2017-12-09 10:19 | P.PNGS ---
Subjective Patient reports: no new complaints, feels better, flatus, no bowel movement Physical Exam Vital signs: Vital Signs 12/08/17 12:00 12/08/17 16:00 12/08/17 20:00 Temperature 98.5 F 99.1 F 98.4 F Pulse Rate 75 72 69 Respiratory Rate 16 16 16 Blood Pressure 134/69 142/76 H 147/77 H Pulse Oximetry 93 L 93 L 96 12/09/17 00:00 12/09/17 08:00 Temperature 99.1 F 94.1 F L Pulse Rate 76 79 Respiratory Rate 16 19 Blood Pressure 129/70 142/73 H Pulse Oximetry 92 L 93 L Intake & Output 12/08/17 12/09/17 12/09/17 18:59 06:59 18:59 Intake Total 1800 / 1800 1580 / 1580 Balance 1800 / 1800 1580 / 1580 Weight 94.1 kg Intake: IV 1100 / 1100 D5W/NS + KCL 20 mEq Inj 1,000 100 / 100 ML @ 30 mls/hr IV.CONT .Q24H [facility] Rx#:[id number] Oral 1800 / 1800 480 / 480 Other: # Voids 4 3 - Routine Respiratory Exam Present: CTA bilaterally - Routine Cardiovascular Exam Present: RRR - Routine Abdominal Exam Present: soft (incisional tenderness binder in place c/d/i) Assessment and Plan - Assessment (1) Incisional hernia of anterior abdominal wall without obstruction or gangrene Code(s): K43.2 - Incisional hernia without obstruction or gangrene Status: Acute Plan: 67 year old male POD3 lap hernia repair and BRYSON plan reg diet oob pain control po d/c home today f/u with Dr. Castellano
[2017-12-09] MEDS: Senna/Docusate Sodium 8.6/50 MG Tablet PO SCH (10:25)
[2017-12-09] MEDS: Sodium Chloride 0.9% 2 ML Flush BID IV.FLUSH SCH (10:25)
--- NOTE | 2017-12-21 14:35 | P.DS ---
Date of admission: 12/06/17 18:07 Primary care physician: PROVIDER NON STAFF Attending physician on discharge: Jamari Castellano Anticipated date of discharge: 12/09/17 Brief History from admission: 67 year old male s/p lap hernia repair and BRYSON DS: Diagnosis - Discharge Diagnosis (1) Incisional hernia of anterior abdominal wall without obstruction or gangrene Status: Acute DS: Medications - Discharge Medications Prescriptions: hydrocodone-acetaminophen [Anthon] 1 tab PO Q4H PRN #20 tab PRN Reason: Acute Pain DS: Summary Hospital Course: This is a 67 year old male s/p lap hernia repair and BRYSON. He was able to tolerate a regular diet. The patient's pain was controlled using oral pain medications. He will continue an abdominal binder. He will follow up with Dr. Castellano in the office. - Time Spent with Patient Total time spent providing and/or coordinating discharge services: Less than 30 minutes - Quality: VTE Deep Vein Thrombosis/Pulmonary Embolism Present on Admission: No Exam Narrative: Alert and awake Abd: lap incisions sites c/d/i; Binder in place Results Procedures completed during hospitalization: 67 year old male s/p lap hernia repair and BRYSON Discharge Plan - Discharge Disposition Patient Disposition: 01 Discharge Home - Discharge Condition Condition: Good - Discharge Order Discharge Orders: Discharge Order (Routine); Ordered 12/09/17 Ordered By: Miller [facility] General Surgery Clear for Discharge (Routine); Ordered 12/09/17 Ordered By: Jamari Castellano - Discharge Details Anticipated Discharge Date: 12/09/17 Discharge Comment: rx on chart - Physicians Team Primary Care Provider: AMADEO STAFF,PROVIDER Attending Provider: Jamari Castellano - Rxs /Orders / Referrals /Forms Prescriptions: New hydrocodone-acetaminophen [Anthon] 7.5-325 mg Tablet 1 tab PO Q4H PRN (Reason: Acute Pain) Qty: 20 RF: 0 Continue celecoxib [Celebrex] 200 mg Capsule 100 mg PO BID multivit with min-folic acid [Adult One Daily Multivitamin] 0.4 mg Tablet 1 tab PO DAILY omega [id number]-fish oil [Fish Oil] 1,000 mg (120 mg-180 mg) Capsule 1 cap PO DAILY rosuvastatin [Crestor] 20 mg Tablet 20 mg PO DAILY Referrals: Jamari Castellano MD [GENERAL SURGERY] - See Instructions (Appt set for Monday Otober 8th at 2PM) NON STAFF,PROVIDER [Primary Care Provider] - See Instructions - Discharge Instructions Patient Printed Instructions: Hydrocodone/Acetaminophen (By mouth), Pain Management After Surgery (DC), Steristrips (ED), Incisional Hernia (DC)
== END 2017-12-09 10:54 | disposition home or self-care (01) ==
LOC: HSDC 11:00 → HSDI 18:07 → N07 19:57
PROVIDERS: ADMIT Surgery Trauma Surgery; ATTEND Surgery Trauma Surgery